=== PATIENT | male | born 1980 | race Caucasian/White ===

== ENCOUNTER → 2017-12-26 | Outpatient (CLI) | payer OTHER ==
--- NOTE | 2017-12-26 12:07 | XR ---
EXAMINATION TYPE: XR hand limited RT DATE OF EXAM: 12/26/2017 COMPARISON: NONE HISTORY: Pain right thumb TECHNIQUE: Two views are submitted. FINDINGS: The osseous structures are intact. Arthropathy of the first MCP joint. No erosive changes. And there is no acute fracture or dislocation. IMPRESSION: 1. No definite acute fracture or dislocation if symptoms persist, follow-up study in 7 to 10 days wo uld be suggested
--- NOTE | 2017-12-26 12:15 | XR ---
EXAMINATION TYPE: XR Hip Complete RT DATE OF EXAM: 12/26/2017 COMPARISON: NONE HISTORY: Pain TECHNIQUE: 2 views submitted FINDINGS: There is no evidence of erosive change or acute fracture. Sclerosis of the SI joint noted. Tiny bone island within the right femoral neck. IMPRESSION: 1. No evidence of acute fracture or dislocation. Correlate for sacroiliitis.
== END | disposition home or self-care (01) ==
LOC: RADXRMAIN 11:43
PROVIDERS: ATTEND Internal Medicine
DX: M25.551 Pain in right hip (principal); M79.641 Pain in right hand
CPT/HCPCS: 73502

== ENCOUNTER 2021-03-07 07:38 | Emergency (ER) | payer OTHER ==
[2021-03-07 07:42] VITALS: RESP 18; TEMP 98
[2021-03-07] MEDS ORDERED: HYDROcodone/APAP 5-325MG 1 EACH TAB PO STA (07:46)
--- NOTE | 2021-03-07 07:49 | ED ---
Upper Extremity HPI - General Chief Complaint: Extremity Injury, Upper Stated Complaint: Lt Ring Finger Broken Time Seen by Provider: 03/07/21 07:43 Source: patient, RN notes reviewed Mode of arrival: ambulatory Limitations: no limitations - History of Present Illness Initial Comments: 41-year-old male presents emergency Department chief complaint of left hand fourth digit injury. Patient states is coming out of his camper tripped and fell on his finger. Patient states his fingers sideways. Patient is right-hand dominant no head injury no other injuries from the fall. - Related Data Previous Rx's Medication Instructions Recorded Acetaminophen-Codeine 300-30mg 1 each PO Q4H PRN #20 tablet 02/05/15 [Tylenol w/codeine #3] Clarithromycin [Biaxin] 500 mg PO Q12HR #20 tablet 02/05/15 predniSONE 50 mg PO DAILY #4 tab 02/05/15 Ibuprofen [Motrin] 600 mg PO Q8HR PRN #20 tab 03/07/21 Allergies Allergy/AdvReac Type Severity Reaction Status Date / Time No Known Allergies Allergy Verified 03/07/21 07:39 Review of Systems ROS Statement: Those systems with pertinent positive or pertinent negative responses have been documented in the HPI. ROS Other: All systems not noted in ROS Statement are negative. Past Medical History Past Medical History: No Reported History Additional Past Medical History / Comment(s): neck pain History of Any Multi-Drug Resistant Organisms: None Reported Past Surgical History: No Surgical Hx Reported Past Psychological History: No Psychological Hx Reported Smoking Status: Current every day smoker Past Alcohol Use History: Occasional Past Drug Use History: None Reported General Exam Limitations: no limitations General appearance: alert, in no apparent distress Head exam: Present: atraumatic, normocephalic, normal inspection Neck exam: Present: normal inspection. Absent: tenderness, meningismus, lymphadenopathy Respiratory exam: Present: normal lung sounds bilaterally. Absent: respiratory distress, wheezes, rales, rhonchi, stridor Cardiovascular Exam: Present: normal rhythm, tachycardia, normal heart sounds. Absent: systolic murmur, diastolic murmur, rubs, gallop, clicks Extremities exam: Present: other (Left hand fourth digit there is no iris deformity patient has induration of the digit at proximal and phalangeal joint) Neurological exam: Present: alert Skin exam: Present: warm, dry, intact, normal color. Absent: rash Course Vital Signs 03/07/21 07:39 Temperature 98 F Pulse Rate 129 H Respiratory 18 Rate Blood Pressure 148/86 O2 Sat by Pulse 100 Oximetry Procedures - Orthopedic Joint Reduction Joint #1 Consent Obtained: verbal consent, emergent situation (Left hand fourth digit) Side: left Joint Reduction Location: finger Technique Used: traction/counter-traction Post-Reduction Neuro Exam: intact Post-Reduction Vascular Exam: intact Post Reduction X-Ray Obtained: Yes Post Reduction X-Ray Results: reduced Splint Applied: Yes Patient Tolerated Procedure: well, no complications Medical Decision Making - Medical Decision Making X-ray shows adequate reduction there is also associated fracture that was proximal to dislocation. Patient is neurovascularly intact. Patient was splinted and follow orthopedics as needed. Disposition Clinical Impression: Closed dislocation of finger of left hand, Fracture of phalanx, proximal, left hand Disposition: HOME SELF-CARE Condition: Stable Instructions (If sedation given, give patient instructions): Finger Dislocation (ED), Finger Fracture (ED) Additional Instructions: Please return to the Emergency Department if symptoms worsen or any other concerns. Prescriptions: Ibuprofen [Motrin] 600 mg PO Q8HR PRN #20 tab PRN Reason: Pain Is patient prescribed a controlled substance at d/c from ED?: No Referrals: Saran Valencia MD [Primary Care Provider] - 1-2 days Biju Teixeira MD [STAFF PHYSICIAN] - 1-2 days Time of Disposition: 08:01
--- NOTE | 2021-03-07 08:00 | XR ---
EXAMINATION TYPE: XR finger LT DATE OF EXAM: 03/07/2021 COMPARISON: None HISTORY: Pain, fall TECHNIQUE: 3 view left ring finger FINDINGS: There is a spiral fracture of the metaphysis proximal phalanx left ring finger. Mild soft t issue swelling is present. No additional fractures are within the [id number]. IMPRESSION: 1. Spiral fracture mid diaphysis proximal phalanx left ring finger
[2021-03-07] MEDS ORDERED: ACET/COD 300 MG/30 MG STARTER PACK 6 TAB BTL PO STA (08:01)
[2021-03-07 08:20] VITALS: BP 134/97; PULSE 115
== END 2021-03-07 08:20 | disposition home or self-care (01) ==
LOC: EC 07:38
DX: S62.615A Displaced fracture of proximal phalanx of left ring finger, initial encounter for closed fracture (principal); W01.0XXA Fall on same level from slipping, tripping and stumbling without subsequent striking against object, initial encounter; F17.200 Nicotine dependence, unspecified, uncomplicated
CPT/HCPCS: 26725; 99283

== ENCOUNTER 2021-03-22 18:07 | Emergency (ER) | payer OTHER ==
[2021-03-22 18:18] VITALS: RESP 18; TEMP 97.9
[2021-03-22] MEDS ORDERED: HYDROmorphone 1 MG/ML 1 ML SYRINGE IVP STA (18:22)
[2021-03-22] MEDS ORDERED: ACETAMINOPHEN TAB 500 MG TAB PO STA (19:00)
--- NOTE | 2021-03-22 19:06 | ED ---
General Adult HPI - General Chief complaint: Extremity Injury, Upper Stated complaint: finger injury Time Seen by Provider: 03/22/21 18:40 Source: patient, RN notes reviewed Mode of arrival: ambulatory Limitations: no limitations - History of Present Illness Initial comments: Patient is a pleasant 41-year-old male presenting to the emergency Department with complaints of fracture left ring finger. Incident occurred on 03/07/21. Patient fell. Unclear exact mechanism. Patient was seen emergency department and did follow-up with orthopedics. Patient does have an appointment in 2 days to follow-up with a different orthopedic doctor. Patient states he is having some discomfort still as well as tingling. No additional injury since the original time. No color change. Pain with range of motion. - Related Data Previous Rx's Medication Instructions Recorded Acetaminophen-Codeine 300-30mg 1 each PO Q4H PRN #20 tablet 02/05/15 [Tylenol w/codeine #3] Clarithromycin [Biaxin] 500 mg PO Q12HR #20 tablet 02/05/15 predniSONE 50 mg PO DAILY #4 tab 02/05/15 Ibuprofen [Motrin] 600 mg PO Q8HR PRN #20 tab 03/07/21 Allergies Allergy/AdvReac Type Severity Reaction Status Date / Time No Known Allergies Allergy Verified 03/22/21 18:18 Review of Systems ROS Statement: Those systems with pertinent positive or pertinent negative responses have been documented in the HPI. ROS Other: All systems not noted in ROS Statement are negative. Constitutional: Denies: fever Eyes: Denies: eye pain ENT: Denies: ear pain Respiratory: Denies: cough Cardiovascular: Denies: chest pain Endocrine: Denies: fatigue Gastrointestinal: Denies: abdominal pain Genitourinary: Denies: dysuria Musculoskeletal: Reports: as per HPI, back pain (Chronic and unchanged) Skin: Denies: rash Neurological: Denies: weakness Psychiatric: Reports: anxiety Past Medical History Past Medical History: No Reported History Additional Past Medical History / Comment(s): neck pain History of Any Multi-Drug Resistant Organisms: None Reported Past Surgical History: No Surgical Hx Reported Past Psychological History: No Psychological Hx Reported Smoking Status: Current every day smoker Past Alcohol Use History: Occasional Past Drug Use History: None Reported General Exam Limitations: no limitations General appearance: alert, in no apparent distress Head exam: Present: normocephalic Eye exam: Present: normal appearance Neck exam: Present: normal inspection Respiratory exam: Present: normal lung sounds bilaterally Cardiovascular Exam: Present: regular rate, normal rhythm Extremities exam: Present: other (Left ring finger with tenderness in the proximal portion. Sensation is intact. Cap refill less than 2 seconds. No significant swelling. Finger is soft. Patient is able to do some flexion and extension, limited by discomfort.) Neurological exam: Present: alert Psychiatric exam: Present: normal affect, normal mood Skin exam: Present: normal color Course Vital Signs 03/22/21 18:11 Temperature 97.9 F Pulse Rate 102 H Respiratory 18 Rate Blood Pressure 131/90 O2 Sat by Pulse 98 Oximetry Medical Decision Making - Medical Decision Making No clinical concerns for compartment syndrome. Patient is informed nothing different to do acutely at this time and is comfortable with that. Patient does request Tylenol, states he has other pain medication at home. Patient states he just thought he should get it checked out because he was here for an outpatient MRI of his neck. Finger splint was replaced. Disposition Clinical Impression: Fracture of phalanx, proximal, left hand Disposition: HOME SELF-CARE Condition: Stable Instructions (If sedation given, give patient instructions): Hand Fracture (ED) Additional Instructions: Please follow-up with orthopedic doctor on Monday as planned. Return for increased pain, swelling, color change, unable to move fingers, worsening symptoms or any other concerns. Ice to affected area. Continue splint. Is patient prescribed a controlled substance at d/c from ED?: No Referrals: Saran Valencia MD [Primary Care Provider] - 1-2 days Marcel Goodwin DO [Doctor of Osteopathic Medicine] - 1-2 days Time of Disposition: 19:06
[2021-03-22 19:14] VITALS: BP 127/89; PULSE 90
== END 2021-03-22 19:13 | disposition home or self-care (01) ==
LOC: EC 18:07
DX: S62.615A Displaced fracture of proximal phalanx of left ring finger, initial encounter for closed fracture (principal); F17.200 Nicotine dependence, unspecified, uncomplicated; X58.XXXA Exposure to other specified factors, initial encounter
CPT/HCPCS: 99283

== ENCOUNTER → 2021-03-22 | Outpatient (CLI) | payer OTHER | END | disposition home or self-care (01) | LOC: RADMRIMAIN 17:24 | PROVIDERS: ATTEND Internal Medicine Rheumatology | DX: Z53.9 Procedure and treatment not carried out, unspecified reason (principal) ==

== ENCOUNTER 2022-11-09 13:38 | Emergency (ER) | payer OTHER ==
[2022-11-09 14:03] VITALS: BP 150/95; PULSE 78; RESP 18; TEMP 98.1
--- NOTE | 2022-11-09 17:20 | XR ---
EXAMINATION TYPE: XR chest 2V DATE OF EXAM: 11/09/2022 5:04 PM COMPARISON: Chest radiographs from 04/04/2011. TECHNIQUE: XR chest 2V Frontal and lateral views of the chest. CLINICAL INDICATION:Male, 42 years old with history of cough; FINDINGS: Lungs/Pleura: There is no evidence of pleural effusion, focal consolidation, or pneumothorax. Pulmonary vascularity: Unremarkable. Heart/mediastinum: Cardiomediastinal silhouette is unremarkable. Musculoskeletal: No acute osseous pathology. IMPRESSION: No acute cardiopulmonary disease/process.
--- NOTE | 2022-11-09 17:33 | ED ---
General Adult HPI - General Chief complaint: Upper Respiratory Infection Stated complaint: fever, SOB Time Seen by Provider: 11/09/22 15:56 Source: patient, RN notes reviewed Mode of arrival: ambulatory - History of Present Illness Initial comments: 42-year-old male with no significant past medical history presents to the emergency department complaining of cough, congestion, generalized body aches. He has tried anything for his symptoms. She denies any recent known sick contacts. He was not vaccinated against COVID-19 or influenza. Denies any fever, chills, headache, sore throat, shortness of breath, chest pain, limitations, abdominal pain, nausea vomiting or diarrhea. - Related Data Previous Rx's Medication Instructions Recorded Acetaminophen-Codeine 300-30mg 1 each PO Q4H PRN #20 tablet 02/05/15 [Tylenol w/codeine #3] Clarithromycin [Biaxin] 500 mg PO Q12HR #20 tablet 02/05/15 predniSONE 50 mg PO DAILY #4 tab 02/05/15 Ibuprofen [Motrin] 600 mg PO Q8HR PRN #20 tab 03/07/21 Benzonatate [Tessalon Perles] 100 mg PO TID PRN 6 Days #20 11/09/22 capsule Allergies Allergy/AdvReac Type Severity Reaction Status Date / Time No Known Allergies Allergy Verified 11/09/22 14:03 Review of Systems ROS Statement: Those systems with pertinent positive or pertinent negative responses have been documented in the HPI. ROS Other: All systems not noted in ROS Statement are negative. Past Medical History Past Medical History: No Reported History Additional Past Medical History / Comment(s): neck pain History of Any Multi-Drug Resistant Organisms: None Reported Past Surgical History: No Surgical Hx Reported Past Psychological History: No Psychological Hx Reported Smoking Status: Current every day smoker Past Alcohol Use History: Occasional Past Drug Use History: None Reported General Exam General appearance: alert, in no apparent distress Head exam: Present: atraumatic, normocephalic, normal inspection Eye exam: Present: normal appearance, PERRL, EOMI. Absent: scleral icterus, conjunctival injection, periorbital swelling ENT exam: Present: normal exam, mucous membranes moist Neck exam: Present: normal inspection. Absent: tenderness, meningismus, lymphadenopathy Respiratory exam: Present: normal lung sounds bilaterally. Absent: respiratory distress, wheezes, rales, rhonchi, stridor Cardiovascular Exam: Present: regular rate, normal rhythm, normal heart sounds. Absent: systolic murmur, diastolic murmur, rubs, gallop, clicks GI/Abdominal exam: Present: soft, normal bowel sounds. Absent: distended, tenderness, guarding, rebound, rigid Extremities exam: Present: normal inspection, full ROM, normal capillary refill. Absent: tenderness, pedal edema, joint swelling, calf tenderness Back exam: Present: normal inspection Neurological exam: Present: alert, oriented X3, CN II-XII intact Psychiatric exam: Present: normal affect, normal mood Skin exam: Present: warm, dry, intact, normal color. Absent: rash Course Vital Signs 11/09/22 13:57 Temperature 98.1 F Pulse Rate 78 Respiratory 18 Rate Blood Pressure 150/95 O2 Sat by Pulse 97 Oximetry - Reevaluation(s) Reevaluation #1: 11/09/22 17:55 Patient reevaluated. Patient updated on all results and is agreeable with plan for discharge. Medical Decision Making - Medical Decision Making Was pt. sent in by a medical professional or institution (, PA, SENIOR CLINICAL DATA COORDINATOR, urgent care, hospital, or [facility]...) When possible be specific @ -[No] Did you speak to anyone other than the patient for history (EMS, parent, family, police, friend...)? What history was obtained from this source @ -[No] Did you review nursing and triage notes (agree or disagree)? Why? @ -[I reviewed and agree with nursing and triage notes] Were old charts reviewed (outside hosp., previous admission, EMS record, old E KG, old radiological studies, urgent care reports/EKG's, [facility] records)? Report findings @ -[No old charts were reviewed] Differential Diagnosis (chest pain, altered mental status, abdominal pain women, abdominal pain men, vaginal bleeding, weakness, fever, dyspnea, syncope, headache, dizziness, GI bleed, back pain, seizure, CVA, palpatations, mental h ealth)? @ -[not applicable] EKG interpreted by me (3pts min.). @ -[As above] X-rays interpreted by me (1pt min.). @ -No acute pleural process CT interpreted by me (1pt min.). @ -[None done] U/S interpreted by me (1pt. min.). @ -[None done] What testing was considered but not performed or refused? (CT, X-rays, U/S, labs)? Why? @ -[None] What meds were considered but not given or refused? Why? @ -[None] Did you discuss the management of the patient with other professionals (professionals i.e. Dr., PA, SENIOR CLINICAL DATA COORDINATOR, lab, RT, psych nurse, social media executive, inhalation therapist, teacher, upscale security officer, window caser)? Give summary @ -[No] Was smoking cessation discussed for >3mins.? @ -yes Was critical care preformed (if so, how long)? @ -[No] Were there social determinants of health that impacted care today? How? (Homelessness, low income, unemployed, alcoholism, drug addiction, transportation, low edu. Level, literacy, decrease access to med. care, retirement, rehab)? @ -[No] Was there de-escalation of care discussed even if they declined (Discuss DNR or withdrawal of care, Hospice)? DNR status @ -[No] What co-morbidities impacted this encounter? (DM, HTN, Smoking, COPD, CAD, Cancer, CVA, ARF, Chemo, Hep., AIDS, mental health diagnosis, sleep apnea, morbid obesity)? @ -[None] Was patient admitted / discharged? Hospital course, mention meds given and route, prescriptions, significant lab abnormalities, going to OR and other pertinent info. @ -42-year-old female presents to the emergency department for cough Patient had a history and physical performed, physical exam is essentially unremarkable with mild tenderness to palpation of the right hip. Patient had lab work and imaging ordered and performed while in the emergency department, workup is essentially unremarkable. I discussed the results in detail with the patient, all questions and concerns were addressed. Patient is agreeable with the plan for discharge and The patient was discharged in stable condition with recommended close follow-up with primary care in 1-2 days. Return precautions were discussed. I discussed the case with Dr. Nimo JOSHUA who agrees with the plan of care. Undiagnosed new problem with uncertain prognosis? @ -[No] Drug Therapy requiring intensive monitoring for toxicity (Heparin, Nitro, Insulin, Cardizem)? @ -[No] Were any procedures done? @ -[No] Diagnosis/symptom? @ -acute viral syndrome Acute, or Chronic, or Acute on Chronic? @ -[default] Uncomplicated (without systemic symptoms) or Complicated (systemic symptoms)? @ -[default] Side effects of treatment? @ -[No] Exacerbation, Progression, or Severe Exacerbation? @ -[No] Poses a threat to life or bodily function? How? (Chest pain, [place], NH, pneumonia, PE, COPD, DKA, ARF, appy, cholecystitis, CVA, Diverticulitis, Homicidal, Suicidal, threat to staff... and all critical care pts) @ -[No] - Lab Data Lab Results 11/09/22 Range/Units 14:04 Influenza Type A (PCR) Not Detected (Not Detectd) Influenza Type B (PCR) Not Detected (Not Detectd) RSV (PCR) Not Detected (Not Detectd) SARS-CoV-2 (PCR) Not Detected (Not Detectd) Disposition Clinical Impression: Acute upper respiratory infection Disposition: HOME SELF-CARE Condition: Stable Instructions (If sedation given, give patient instructions): Upper Respiratory Infection (ED) Additional Instructions: Please return to the nearest emergency department if worsening symptoms of cough, shortness of breath, fever develops. Prescriptions: Benzonatate [Tessalon Perles] 100 mg PO TID PRN 6 Days #20 capsule PRN Reason: Cough Is patient prescribed a controlled substance at d/c from ED?: No Referrals: Saran Valencia MD [Primary Care Provider] - 1-2 days Time of Disposition: 17:26
== END 2022-11-09 18:01 | disposition home or self-care (01) ==
LOC: EC 13:38
DX: J06.9 Acute upper respiratory infection, unspecified (principal); F17.200 Nicotine dependence, unspecified, uncomplicated; Z20.822 Contact with and (suspected) exposure to COVID-19
CPT/HCPCS: 71046; 87636; 99285